=== PATIENT | male | born 1980 | race Caucasian/White ===

== ENCOUNTER 2025-02-07 23:15 | Emergency (ER) | payer OTHER ==
[2025-02-07] MEDS ORDERED: Ondansetron PF 4 MG/2 ML Vial ONE (23:36)
[2025-02-07] MEDS ORDERED: Ketorolac Tromethamine 30 MG (1 mL) VIAL ONE (23:36)
[2025-02-07 23:40] LABS: Hematocrit 38.9 % (42.0-52.0); Hemoglobin 14.5 g/dL (14.0-18.0); MDiff Complete? YES; Mean Corpuscular Hemoglobin 32.4 pg (27.0-31.0); Mean Corpuscular Volume 86.8 fl (78.0-98.0); Platelet Adequacy Comment Appears Adequate; Platelet Count 223 10x3/uL (130-400); Red Blood Cell (RBC) Count 4.48 mill/uL (4.70-6.10); White Blood Cell (WBC) Count 6.2 10x3/uL (4.8-10.8)
[2025-02-07 23:52] LABS: ALT (SGPT) 30 U/L (Less than 45); AST (SGOT) 30 U/L (11-34); Albumin 4.3 g/dL (3.1-4.5); Alkaline Phosphatase 48 U/L (40-110); Anion Gap 16 mmol/L (10-20); BUN (Urea Nitrogen) 16 mg/dL (8.9-20.6); Bilirubin, Total 0.5 mg/dL (0.3-1.2); Calc. Creatinine Clearance 0 mL/min (70-130); Calcium 9.4 mg/dL (7.8-10.44); Carbon Dioxide 23 mmol/L (22-29); Chloride 104 mmol/L (98-107); Globulin 2.9 g/dL (2.4-3.5); Glucose 88 mg/dL (70-105); Lipase 25 U/L (8-78); Potassium 4.3 mmol/L (3.5-5.1); Sodium 139 mmol/L (136-145)
== END 2025-02-08 00:38 | disposition home or self-care (01) ==
LOC: BURERS 23:15
DX: R10.12 Left upper quadrant pain (principal)
CPT/HCPCS: 74176; 80053; 83690; 85025; 96374; 96375; J1885